=== PATIENT | female | born 1935 | race Caucasian/White ===

== ENCOUNTER 2020-01-10 11:22 | Emergency (ER) | payer OTHER ==
[~2020-01-10] VITALS: Ht 162.6 cm; Wt 68.5 kg
[~2020-01-10 11:22] MED LIST: ANUSOL-HC30 GM RC; ANUSOL-HC30 GM RECTAL; BAYER CHEWABLE81 MG PO; CIPRO500 MG PO; CRESTOR40 MG PO; FLAGYL500 MG PO; FOSAMAX 70 MG T70 M1; FOSAMAX 70 MG T70 MG PO; GABAPENTIN 100100 MG PO; NORCO 5-325 TA1 EACH PO; PRILOSEC 20 MG20 MG; SYNTHROID100 MCG PO; SYNTHROID25 MCG PO; TYLENOL EX-STR500 M2 PO; VITAMIN D5000 UNIT PO; ZANTAC 150MG T150 M1 PO; ZETIA10 MG PO
[2020-01-10 11:51] LABS: ABSOLUTE NEUTROPHILS 4.6 thou/uL (1.4-8.2); BASOPHILS 0.5 % (0.0-2.0); EOSINOPHILS 4.4 % (0.0-3.0); HEMATOCRIT 43.5 % (37.0-47.0); HEMOGLOBIN 14.2 gm/dL (12.0-15.0); LYMPHOCYTES 21.4 % (24.0-44.0); MCHC 32.6 g/dL (28.0-37.0); MCV 92.2 fL (80.0-100.0); MONOCYTES 9.2 % (1.0-8.0); PLATELET COUNT 189 thou/uL (150-400); POLYS 64.5 % (36.0-66.0); RBC 4.72 mil/uL (4.20-5.00); RDW 13.8 % (10.5-14.5); WBC 7.2 thou/uL (4.0-11.0)
[2020-01-10 12:11] LABS: CALCIUM 10.1 mg/dL (8.5-10.1); CREATININE 1.1 mg/dL (0.6-1.0); POTASSIUM 3.8 mmol/L (3.5-5.1)
[2020-01-10 12:17] LABS: ALBUMIN 3.6 g/dL (3.4-5.0); TOTAL BILIRUBIN 0.4 mg/dL (0.2-1.0)
[2020-01-10 12:21] LABS: URINE BILIRUBIN NEGATIVE (Negative); URINE BLOOD NEGATIVE (Negative); URINE CLARITY CLEAR; URINE COLOR YELLOW; URINE GLUCOSE-RANDOM* NEGATIVE (Negative); URINE KETONES NEGATIVE (Negative); URINE LEUKOCYTES-REFLEX TRACE (Negative); URINE NITRITE-REFLEX NEGATIVE (Negative); URINE PROTEIN (DIPSTICK) NEGATIVE (Negative); URINE SPECIFIC GRAVITY <= 1.005 (1.005-1.035); URINE UROBILINOGEN 0.2 E.U./dl (0.2-1.0)
[2020-01-10 13:04] VITALS: BP 130/79
== END 2020-01-10 13:04 | disposition home or self-care (01) ==
LOC: ER 11:22
PROVIDERS: Emergency Medicine
DX: R10.9 Unspecified abdominal pain (principal); R19.7 Diarrhea, unspecified; K21.9 Gastro-esophageal reflux disease without esophagitis; E78.5 Hyperlipidemia, unspecified; Z90.710 Acquired absence of both cervix and uterus; Z79.82 Long term (current) use of aspirin; Z79.899 Other long term (current) drug therapy; Z88.0 Allergy status to penicillin; Z88.2 Allergy status to sulfonamides